=== PATIENT | male | born 1960 | race Caucasian/White ===

== ENCOUNTER 2017-04-03 21:39 | Outpatient (CLI) | END 2017-04-03 21:40 | disposition short-term general hospital (02) | LOC: AMBL 21:39 | PROVIDERS: ATTEND Family Medicine | DX: R07.9 Chest pain, unspecified (principal); R20.0 Anesthesia of skin; R41.82 Altered mental status, unspecified; R40.2421 Glasgow coma scale score 9-12, in the field [EMT or ambulance]; S00.83XA Contusion of other part of head, initial encounter ==